=== PATIENT | female | born 1965 | race Caucasian/White ===

== ENCOUNTER 2021-10-27 19:07 | Emergency (ER) | payer OTHER ==
[2021-10-27 19:53] VITALS: BMI 24.2
[2021-10-27] MEDS ORDERED: ACETAMINOPHEN 1000 MG/100 ML BAG IVPB ONE (22:23)
[2021-10-27] MEDS ORDERED: ACETAMINOPHEN INJECTION 100 ML IVPB ONE (22:45)
[2021-10-27 23:15] LABS: EOS % 7.9 % (0-4.5); HEMOGLOBIN 12.8 GM/dL (10.7-15.3); LYMPH % 50.3 % (8-40); MCH 25.9 pg (25.7-33.7); MEAN CELL VOLUME 80.7 fl (80-96); MEAN PLT VOLUME 10.5 fl (7.5-11.1); MONO % 12.9 % (3.8-10.2); NEUT % 26.9 % (42.8-82.8); PLATELET COUNT 226 10^3/uL (134-434); RBC 4.95 M/mm3 (3.60-5.2); RDW 13.6 % (11.6-15.6); WHITE BLOOD COUNT 5.8 K/mm3 (4.0-10.0)
[2021-10-27 23:39] LABS: BLOOD UREA NITROGEN 9.7 mg/dL (7-18); MAGNESIUM 2.2 mg/dL (1.8-2.4)
[2021-10-27 23:42] LABS: CREATININE 0.8 mg/dL (0.55-1.3)
[2021-10-27 23:44] LABS: BILIRUBIN,TOTAL 0.4 mg/dL (0.2-1)
[2021-10-28 01:41] VITALS: BP 138/79; PULSE 50; TEMP 97.6
== END 2021-10-28 03:17 | disposition home or self-care (01) ==
LOC: JER 19:07
PROC: 3E033GC Introduction of Other Therapeutic Substance into Peripheral Vein, Percutaneous Approach (ICD-10-PCS; principal; 2021-10-27)
DX: R00.2 Palpitations (principal); I10 Essential (primary) hypertension
CPT/HCPCS: 36415; 70450-TC; 71046-TC-FY; 80053; 83735; 84443; 84484; 85025; 93005; 93010; 99285-25